=== PATIENT | female | born 1960 | race African-American/Black ===

== ENCOUNTER 2017-02-09 15:26 | Emergency (ER) | payer OTHER ==
[2017-02-09 15:30] VITALS: TEMP 97.5; BMI 29.0
--- NOTE | 2017-02-09 16:11 | PDOC ---
History of Present Illness - General Chief Complaint: Pain Stated Complaint: LOWER ABD PAIN Time Seen by Provider: 02/09/17 15:54 History Source: Patient - History of Present Illness Travel History: No Initial Comments: 02/09/17 17:20 56-year-old female with a history of NIDDM presents to the emergency department complaining of left lower quadrant abdominal pain. Pain is described as 4/10 dull nonradiating intermittent discomfort x7d. There are no alleviating or exacerbating factors area patient denies fever, chills, nausea/vomiting, chest pain, shortness of breath, flank pains, urinary symptoms: Frequency/urgency/ hesitancy, hematuria. LBM x2d ago Timing/Duration: reports: intermittent Quality: reports: mild Abdominal Pain Onset Location: reports: [facility] Past History - Past Medical History Allergies/Adverse Reactions: Allergies Allergy/AdvReac Type Severity Reaction Status Date / Time No Known Allergies Allergy Verified 02/09/17 15:30 Home Medications: Ambulatory Orders Dapagliflozin Propanediol [Farxiga] 10 mg PO DAILY 12/27/14 Liraglutide [Victoza -] 1.2 mg SQ DAILY@0700 12/27/14 Quinapril HCl [Accupril] 10 mg PO DAILY 12/27/14 Anemia: No Asthma: No Cancer: No Cardiac Disorders: No CVA: No COPD: No CHF: No DVT: No Dementia: No Diabetes: Yes GI Disorders: No Disorders: No HTN: No Hypercholesterolemia: No Liver Disease: No Seizures: No Thyroid Disease: No - Surgical History Abdominal Surgery: No (etopic) Appendectomy: No Cardiac Surgery: No Cholecystectomy: No Lung Surgery: No Neurologic Surgery: No Orthopedic Surgery: No - Suicide/Smoking/Psychosocial Hx Smoking Status: No Smoking History: Never smoked Number of Cigarettes Smoked Daily: 0 Information on smoking cessation initiated: No Hx Alcohol Use: No Drug/Substance Use Hx: No Substance Use Type: None Hx Substance Use Treatment: No Review of Systems - Review of Systems Able to Perform ROS?: Yes Comments:: 02/09/17 17:21 CONSTITUTIONAL: Absent: fever, chills, diaphoresis, generalized weakness, malaise, loss of appetite HEENT: Absent: rhinorrhea, nasal congestion, throat pain, throat swelling, difficulty swallowing, mouth swelling, ear pain, eye pain, visual Changes CARDIOVASCULAR: Absent: chest pain, loss of consciousness, palpitations, irregular heart rate, peripheral edema RESPIRATORY: Absent: cough, shortness of breath, dyspnea with exertion, orthopnea, wheezing, stridor, hemoptysis GASTROINTESTINAL: +LLQ pain Absent: abdominal distension, nausea, vomiting, diarrhea, constipation, melena, hematochezia GENITOURINARY: Absent: dysuria, frequency, urgency, hesitancy, hematuria, flank pain, genital pain MUSCULOSKELETAL: Absent: myalgia, arthralgia, joint swelling SKIN: Absent: rash, itching, pallor HEMATOLOGIC/IMMUNOLOGIC: Absent: easy bleeding, easy bruising, lymphadenopathy, frequent infections ENDOCRINE: Absent: unexplained weight gain, unexplained weight loss, heat intolerance, cold intolerance NEUROLOGIC: Absent: headache, focal weakness or paresthesias, dizziness, unsteady gait, seizure, mental status changes, bladder or bowel incontinence Is the patient limited Finnish proficient: No *Physical Exam - Vital Signs Last Vital Signs Temp Pulse Resp BP Pulse Ox 97.5 F L 85 18 135/70 99 02/09/17 15:28 02/09/17 15:28 02/09/17 15:28 02/09/17 15:28 02/09/17 15:28 - Physical Exam Comments: 02/09/17 17:21 GENERAL: Well developed, well nourished. Awake and alert. No acute distress. HEENT: Normocephalic, atraumatic. PERRLA, EOMI. No conjunctival pallor. Sclera are non- icteric. Moist mucous membranes. Oropharynx is clear. NECK: Supple. Full ROM. No JVD. Carotid pulses 2+ and symmetric, without bruits. No thyromegaly. No lymphadenopathy. CARDIOVASCULAR: Regular rate and rhythm. No murmurs, rubs, or gallops. Distal pulses are 2+ and symmetric. PULMONARY: No evidence of respiratory distress. Lungs clear to auscultation bilaterally. No wheezing, rales or rhonchi. ABDOMINAL: +LLQ pain on palp Soft. Non-distended. No rebound or guarding. No organomegaly. Normoactive bowel sounds. MUSCULOSKELETAL Normal range of motion at all joints. No bony deformities or tenderness. No CVA tenderness. EXTREMITIES: No cyanosis. No clubbing. No edema. No calf tenderness. SKIN: Warm and dry. Normal capillary refill. No rashes. No jaundice. ED Treatment Course - LABORATORY CBC & Chemistry Diagram: 02/09/17 15:15 02/09/17 15:15 - RADIOLOGY Radiograph Interpretation: 02/09/17 20:49 CAT scan abdomen/pelvis with by mouth and IV contrast: Preliminary results: Moderate large amount of stool noted in the colon. There is no evidence of intestinal obstruction. No evidence of appendicitis. 1.5 left adnexal cyst. *DC/Admit/Observation/Transfer Diagnosis at time of Disposition: Constipation Qualifiers: Constipation type: unspecified constipation type Qualified Code(s): K59.00 - Constipation, unspecified - Discharge Dispostion Disposition: HOME Condition at time of disposition: Stable Admit: No - Referrals Referrals: Bairon Jung DO [Staff Physician] - - Patient Instructions Printed Discharge Instructions: DI for Constipation Additional Instructions: Increase fluids Colace/[id number] for you constipation Follow-up with the pump servicer helper and your primary care physician Return back to the emergency department for severe/persistent or worsening symptoms. - Post Discharge Activity
[2017-02-09 16:31] LABS: BASO % 0.5 % (0-2.0); EOS # 0.1 # (0-4.5); EOS % 1.2 % (0-4.5); LYMPH # 2.9 (8-40); MEAN CELL VOLUME 87.9 fl (80-96); MEAN PLT VOLUME 6.7 fl (7.5-11.1); MONO # 0.4 # (3.8-10.2); NEUT # 2.8 # (42.8-82.8); NEUT % 44.7 % (42.8-82.8); PLATELET COUNT 306 K/MM3 (134-434); RDW 13.4 % (11.6-15.6); WHITE BLOOD COUNT 6.3 K/mm3 (4.0-10.0)
[2017-02-09 16:49] LABS: URINE APPEARANCE SLCLOUDY; URINE BILIRUBIN NEGATIVE (NEGATIVE); URINE BLOOD NEGATIVE (NEGATIVE); URINE COLOR LTYELLOW; URINE GLUCOSE (UA) 3+ (NEGATIVE); URINE KETONE NEGATIVE (NEGATIVE); URINE NITRITE NEGATIVE (NEGATIVE); URINE PROTEIN NEGATIVE (NEGATIVE); URINE UROBILINOGEN NEGATIVE mg/dL (0.2-1.0)
[2017-02-09 16:55] LABS: URINE LEUK ESTERASE 1+ (NEGATIVE)
[2017-02-09 16:57] LABS: URINE MUCUS RARE; URINE RBC 2 /hpf (0-3); URINE WBC <1 /hpf (3-5)
[2017-02-09 16:58] LABS: ALBUMIN 3.4 g/dl (3.4-5.0); ALK PHOS 164 U/L (45-117); ANION GAP 8 (8-16); BILIRUBIN,TOTAL 0.2 mg/dL (0.2-1.0); CALCIUM 8.8 mg/dL (8.5-10.1); CO2 26 mmol/L (21-32); CREATININE 0.8 mg/dL (0.55-1.02); GLUCOSE,RANDOM 183 mg/dL (74-106); SGOT/AST 8 U/L (15-37); SGPT/ALT 24 U/L (12-78); TOT PROT 6.8 g/dl (6.4-8.2)
[2017-02-09] MEDS ORDERED: SODIUM CHLORIDE 1,000 ML IV STA (19:41)
[2017-02-09 20:47] LABS: URINE LEUK ESTERASE Negative (NEGATIVE)
[2017-02-09 21:00] VITALS: BP 136/84; PULSE 80
== END 2017-02-09 21:00 | disposition home or self-care (01) ==
LOC: JER 15:26
PROC: 3E0337Z Introduction of Electrolytic and Water Balance Substance into Peripheral Vein, Percutaneous Approach (ICD-10-PCS; principal; 2017-02-09)
DX: K59.00 Constipation, unspecified (principal)
CPT/HCPCS: 36415; 74177-TC; 80053; 81003; 81015; 85025; 99281-25